=== PATIENT | female | born 1935 | race Caucasian/White ===

== ENCOUNTER → 2017-07-24 | Outpatient (CLI) | payer MEDICARE ==
[2017-07-24 15:37] LABS: INR 4.1 (0.8-3.0)
[2017-07-24 15:43] LABS: PROTHROMBIN TIME 47.1 SECONDS (9.7-12.8)
== END ==
LOC: COL.LAB 14:46
DX: I82.409 Acute embolism and thrombosis of unspecified deep veins of unspecified lower extremity (principal)

== ENCOUNTER 2017-07-31 09:30 | Emergency (ER) | payer MEDICARE ==
[~2017-07-31] VITALS: Ht 167.6 cm; Wt 63.2 kg
[2017-07-31 09:37] VITALS: BP 115/78; TEMP 97.8
[2017-07-31] MEDS ORDERED: COUMADIN 5MG5 MG/TAB PO (09:49)
[2017-07-31 10:02] LABS: BASO % 0.5 % (0.0-2.0); EOS # 0.2 (0.0-0.7); EOS % 3.8 % (0-4.0); GRAN % 74.4 % (42.2-75.2); HEMATOCRIT 38.8 % (37.0-47.0); HEMOGLOBIN 12.5 g/dl (12.5-16.0); LYMPH # 0.6 (1.2-3.4); LYMPH % 14.8 % (20.0-51.0); MEAN CELL VOLUME 93 fl (80.0-100.0); MEAN CORPUSCULAR HEMOGLOBIN 30 pg (27.0-31.0); MEAN CORPUSCULAR HGB CONC 32 g/dl (33.0-37.0); MEAN PLATELET VOLUME 9.2 fl (7.4-10.4); MONO # 0.3 (0.1-0.6); MONO % 6.5 % (1.7-9.3); PLATELET COUNT 143 K/mm3 (130-400); RED BLOOD COUNT 4.16 M/mm3 (4.10-5.30); REDCELL DISTRIBUTION WIDTH-CV 13.1 % (11.5-14.5)
[2017-07-31 10:10] LABS: ANION GAP 9 mmol/L (7-16); BLOOD UREA NITROGEN 15 mg/dL (7-17); CARBON DIOXIDE 29 mmol/L (22-30); CHLORIDE 103 mmol/L (98-107); CREATININE, serum 0.76 mg/dL (0.52-1.25); GLUCOSE 83 mg/dL (74-106); INR 3.1 (0.8-3.0); POTASSIUM 4.2 mmol/L (3.4-5.0); PROTHROMBIN TIME 34.9 SECONDS (9.7-12.8); SODIUM 142 mmol/L (137-145)
[2017-07-31 11:38] VITALS: PULSE 86
== END 2017-07-31 11:38 | disposition home or self-care (01) ==
LOC: COL.ER 09:30
PROVIDERS: Emergency Medicine
DX: I82.502 Chronic embolism and thrombosis of unspecified deep veins of left lower extremity (principal); Z79.01 Long term (current) use of anticoagulants